=== PATIENT | male | born 1990 | race Caucasian/White ===

== ENCOUNTER 2017-01-21 16:07 | Emergency (ER) | payer OTHER | END 2017-01-21 19:26 | disposition home or self-care (01) | LOC: ER 16:07 | DX: M79.661 Pain in right lower leg (principal); M79.89 Other specified soft tissue disorders; M25.561 Pain in right knee; E11.9 Type 2 diabetes mellitus without complications; I10 Essential (primary) hypertension; G47.30 Sleep apnea, unspecified; Z98.890 Other specified postprocedural states; F17.210 Nicotine dependence, cigarettes, uncomplicated; Z79.899 Other long term (current) drug therapy; Z79.84 Long term (current) use of oral hypoglycemic drugs | CPT/HCPCS: 73564; 93971; 99070; 99284-25 ==